=== PATIENT | female | born 1980 | race Caucasian/White ===

== ENCOUNTER 2017-07-03 21:51 | Inpatient (IN) | payer BC, MEDICAID ==
[~2017-07-03] VITALS: Ht 165.1 cm; Wt 85.7 kg
[~2017-07-03 21:51] MED LIST: ESCI10TA PO; GABA-531 PO
[2017-07-03 22:13] LABS: BASOPHILS % (AUTO) 0.4 % (0.0-2.0); EOSINOPHILS % (AUTO) 0.3 % (1.0-6.0); HEMATOCRIT 44.3 % (36-46); HEMOGLOBIN 15.4 g/dL (12.0-16.0); LYMPHOCYTES # (AUTO) 1.1 K/uL (1.0-4.8); LYMPHOCYTES % (AUTO) 21.5 % (22.0-44.0); MEAN CORPUSCULAR HEMOGLOBIN 29.2 pg (26.0-34.0); MEAN CORPUSCULAR HGB CONC 34.8 G/dL (31.0-37.0); MEAN CORPUSCULAR VOLUME 84 fL (80-100); MONOCYTES # (AUTO) 0.6 K/uL (0.1-1.0); MONOCYTES % (AUTO) 12.1 % (2.0-9.0); NEUTROPHILS # (AUTO) 3.4 K/uL (1.8-7.7); NEUTROPHILS % (AUTO) 65.7 % (40.0-70.0); PLATELET COUNT (AUTO) 256 K/uL (150-450); RED BLOOD CELL COUNT(AUTO) 5.28 MIL/uL (4.00-5.20); RED CELL DISTRIBUTION WIDTH 13.1 % (11.5-14.5); WHITE BLOOD COUNT (AUTO) 5.1 K/uL (4.5-11.0)
[2017-07-03 22:34] LABS: ANION GAP 12 mmol/L (8-16); CALCIUM, TOTAL 9.4 mg/dL (8.8-10.5); CARBON DIOXIDE 27 mmol/L (22-29); CHLORIDE 97 mmol/L (98-107); CREATININE 0.92 mg/dL (0.60-1.30); GLOMERULAR FILTR. RATE CALC > 60 mL/min (>60); POTASSIUM 3.4 mmol/L (3.5-5.1); SODIUM SERUM 136 mmol/L (136-145); UREA NITROGEN, BLOOD 9 mg/dL (7-18)
[2017-07-03 22:38] LABS: ALANINE AMINOTRANSFERASE 45 U/L (12-78); ALBUMIN 4.2 g/dL (3.4-5.0); ASPARTATE AMINOTRANSFERASE 32 U/L (15-37); BILIRUBIN,TOTAL 0.4 mg/dL (0.1-1.0); TOTAL PROTEIN, SERUM 8.4 g/dL (6.4-8.2)
[2017-07-03] MEDS ORDERED: ACETAMINOPHEN 500 MG TABLET PO ONE (23:15)
[2017-07-03] MEDS ORDERED: GuaiFENesin/D-METHORPHAN [SUGAR-FREE] 200-20MG/10 ML SYRUP UDCUP PO ONE (23:15)
[2017-07-03] MEDS ORDERED: ONDANSETRON HCL 4 MG/2 ML VIAL IM ONE (23:15)
[2017-07-03] MEDS ORDERED: HALOPERIDOL 5 MG TABLET PO PRN (23:30)
[2017-07-03] MEDS ORDERED: LORazepam 2 MG TABLET PO PRN (23:30)
[2017-07-03] MEDS ORDERED: POTASSIUM CHLORIDE 10% 40 MEQ/30 ML LIQUID UDCUP PO ONE (23:45)
[2017-07-04 00:11] LABS: CHOL/HDL RATIO 1.9 (3.9-5.7)
[2017-07-04 02:21] VITALS: BP 120/80
[2017-07-04] MEDS ORDERED: INFLUENZA VIRUS VACCINE QVS 2017-18 (3YR+)/PF 60 MCG/0.5 ML SYRINGE IM ONE (05:30)
[2017-07-04 09:24] VITALS: BP 121/74
[2017-07-04] MEDS ORDERED: ACETAMINOPHEN 325 MG TABLET PO PRN (14:45)
[2017-07-04] MEDS ORDERED: LORATADINE 10 MG TABLET PO PRN (14:45)
[2017-07-04] MEDS ORDERED: IBUPROFEN 400 MG TABLET PO PRN (14:45)
[2017-07-04] MEDS ORDERED: BENZOCAINE/MENTHOL LOZENGE PO PRN (16:45)
[2017-07-04 17:34] VITALS: BP 107/62
[2017-07-05 00:15] VITALS: BP 111/78
[2017-07-05] MEDS: ZOLPIDEM TARTRATE 10 MG TABLET PO PRN (00:17)
[2017-07-05] MEDS: AZITHROMYCIN 250 MG TABLET PO SCH (08:39)
[2017-07-05] MEDS ORDERED: ESCITALOPRAM OXALATE 20 MG TABLET PO SCH (09:00)
[2017-07-05] MEDS: ESCITALOPRAM OXALATE 20 MG TABLET PO SCH ×2 (09:00→20:38)
[2017-07-05 09:10] LABS: POTASSIUM 3.9 mmol/L (3.5-5.1); THYROID STIMULATING HORMONE 0.75 uIU/mL (0.36-3.74)
[2017-07-05 10:26] VITALS: BP 132/82
[2017-07-05 16:26] VITALS: BP 119/84
[2017-07-05] MEDS ORDERED: LOPERAMIDE HCL 2 MG CAPSULE PO PRN (22:15)
[2017-07-05] MEDS ORDERED: ONDANSETRON HCL 4 MG TABLET PO PRN (22:15)
[2017-07-06 00:12] VITALS: BP 116/75
[2017-07-06] MEDS: ZOLPIDEM TARTRATE 10 MG TABLET PO PRN (00:17)
[2017-07-06 09:01] VITALS: BP 111/70
[2017-07-06] MEDS: AZITHROMYCIN 250 MG TABLET PO SCH (09:15)
[2017-07-06] MEDS ORDERED: ESCI20TA PO (13:50)
[2017-07-06] MEDS ORDERED: AZIT250T9 PO (13:50)
[2017-07-06 16:34] VITALS: BP 127/84
== END 2017-07-06 21:13 | disposition home or self-care (01) | DRG 751 ==
LOC: EMS 21:53 → B2S 07-04 00:51
PROVIDERS: ADMIT Psychiatry & Neurology Psychiatry; ATTEND Psychiatry & Neurology Psychiatry
DX: F33.2 Major depressive disorder, recurrent severe without psychotic features (principal); R45.851 Suicidal ideations; J02.9 Acute pharyngitis, unspecified; R19.7 Diarrhea, unspecified; R11.10 Vomiting, unspecified; F41.9 Anxiety disorder, unspecified; E87.6 Hypokalemia; F44.9 Dissociative and conversion disorder, unspecified; M54.30 Sciatica, unspecified side; M47.9 Spondylosis, unspecified; F12.10 Cannabis abuse, uncomplicated; Z87.81 Personal history of (healed) traumatic fracture; Z28.21 Immunization not carried out because of patient refusal; Z88.5 Allergy status to narcotic agent; Z79.899 Other long term (current) drug therapy
CPT/HCPCS: 84132; 84439; 84443; 96372; 99285; G0480; J2405